=== PATIENT | male | born 1950 | race African-American/Black ===

== ENCOUNTER 2021-02-02 12:21 | Inpatient (IN) ==
[2021-02-02 15:43] LABS: Basophils % 0.3 % (0.0-0.8); Eosinophils % 0.3 % (0.00-10.9); Hemoglobin 14.9 GM/DL (14.0-18.0); Immature Granulocytes % 0.3 %; Immature Granulocytes Absolute 0.01 #; Lymphocytes # 0.8 10*3/uL (1.4-4.0); Lymphocytes % 24.4 % (21.2-54.2); Mean Corpuscular HGB Conc 31.7 GM/DL (32-36); Mean Corpuscular Volume 92.7 FL (87-102); Mean Platelet Volume 12.2 FL (9.6-12.0); Monocytes % 11.6 % (1.7-12.7); Neutrophils % 63.1 % (38.7-73.9); Platelet Count 126 T/CUMM (130-400); Red Blood Count 5.07 MC/CUMM (3.8-5.5); Red Cell Distribution Width 13.5 % (9.3-17.3); White Blood Count 3.3 T/CUMM (4-12)
[2021-02-02 15:56] LABS: INR 1.1
[2021-02-02 16:06] LABS: Alanine Aminotransferase 24 U/L (16-61); Albumin 3.7 G/DL (3.4-5.0); Alkaline Phosphatase 49 U/L (45-117); Aspartate Amino Transferase 56 U/L (0-37); Blood Urea Nitrogen 11 MG/DL (7-18); Calcium 8.3 MG/DL (8.5-10.1); Carbon Dioxide 33 MMOL/L (21-32); Estimated Glom Filtration Rate 119 ML/MIN; Ferritin 1607.2 ng/ml (26-388); Glucose 82 MG/DL (74-106); Potassium 4.7 MMOL/L (3.5-5.1); Sodium 136 MMOL/L (136-145); Total Protein 7.4 G/DL (6.4-8.2)
[2021-02-02] MEDS ORDERED: MELATONIN 3 MG TABLET PO PRN (18:19)
[2021-02-02] MEDS ORDERED: ZALEPLON 5 MG CAPSULE PO PRN (18:19)
[2021-02-02] MEDS ORDERED: ONDANSETRON 4 MG/2 ML VIAL IV PRN (18:19)
[2021-02-02] MEDS ORDERED: AZITHROMYCIN INJ 500 MG in SODIUM CHLORIDE 0.9% 250 ML IV ONE (18:19)
[2021-02-02] MEDS ORDERED: ACETAMINOPHEN 325 MG TABLET PO PRN (18:19)
[2021-02-02] MEDS: ENOXAPARIN 40 MG/0.4 ML SYRINGE SUBCUT SCH (22:25)
[2021-02-02] MEDS: ASCORBIC ACID 500 MG TABLET PO SCH (22:25)
[2021-02-02] MEDS: FAMOTIDINE 20 MG TABLET PO SCH (22:25)
[2021-02-03 04:18] LABS: Eosinophils % 0.3 % (0.00-10.9); Hematocrit 44.3 VOL% (42.0-52.0); Hemoglobin 13.6 GM/DL (14.0-18.0); Immature Granulocytes % 0.6 %; Immature Granulocytes Absolute 0.02 #; Lymphocytes # 1.1 10*3/uL (1.4-4.0); Lymphocytes % 31.4 % (21.2-54.2); Mean Corpuscular HGB Conc 30.7 GM/DL (32-36); Mean Corpuscular Volume 92.3 FL (87-102); Mean Platelet Volume 11.3 FL (9.6-12.0); Neutrophils % 55.7 % (38.7-73.9); Platelet Count 131 T/CUMM (130-400); Red Cell Distribution Width 13.2 % (9.3-17.3); White Blood Count 3.5 T/CUMM (4-12)
[2021-02-03 04:39] LABS: Band Neutrophils 1 % (0-10); Eosinophils 1 % (0-10); Lymphocytes 21 % (20-55); Segmented Neutrophils 67 % (50-85); Total Cells Counted 100
[2021-02-03 04:40] LABS: Platelet Estimate Normal
[2021-02-03 04:42] LABS: Albumin 3.1 G/DL (3.4-5.0); Bilirubin,Total 1.1 MG/DL (0.20-1.00); Calcium 8.3 MG/DL (8.5-10.1); Ferritin 1617.4 ng/ml (26-388); Osmolality,Calculated 270.8 MOS/KG (273-304); Potassium 3.8 MMOL/L (3.5-5.1); Total Protein 6.9 G/DL (6.4-8.2)
[2021-02-03] MEDS ORDERED: CHOLECALCIFEROL 1,000 UNIT TABLET PO SCH (09:00)
[2021-02-03] MEDS ORDERED: DEXAMETHASONE 4 MG/1 ML VIAL IV SCH (09:00)
[2021-02-03] MEDS ORDERED: AZITHROMYCIN 250 MG TABLET PO SCH (09:00)
[2021-02-03] MEDS ORDERED: ZINC GLUCONATE 50 MG TABLET PO SCH (09:00)
[2021-02-03] MEDS: ASCORBIC ACID 500 MG TABLET PO SCH ×2 (09:07→21:19)
[2021-02-03] MEDS: FAMOTIDINE 20 MG TABLET PO SCH ×2 (09:09→21:18)
[2021-02-03] MEDS: CETIRIZINE 10 MG TABLET PO SCH ×2 (10:08→18:22)
[2021-02-03] MEDS: IVERMECTIN 3 MG TABLET PO SCH (11:25)
[2021-02-03] MEDS ORDERED: MELATONIN 3 MG TABLET PO PRN (16:00)
[2021-02-03] MEDS: DEXAMETHASONE 4 MG/1 ML VIAL IV SCH ×2 (18:21→23:27)
[2021-02-03] MEDS: ENOXAPARIN 40 MG/0.4 ML SYRINGE SUBCUT SCH (18:22)
[2021-02-03] MEDS: cefTRIAXone 1,000 MG in SODIUM CHLORIDE 0.9% 100 ML IV SCH (18:22)
[2021-02-04 05:31] LABS: Hematocrit 43.1 VOL% (42.0-52.0); Hemoglobin 13.7 GM/DL (14.0-18.0); Immature Granulocytes % 0.8 %; Immature Granulocytes Absolute 0.02 #; Lymphocytes # 0.7 10*3/uL (1.4-4.0); Lymphocytes % 29.2 % (21.2-54.2); Mean Corpuscular HGB Conc 31.8 GM/DL (32-36); Mean Platelet Volume 11.4 FL (9.6-12.0); Monocytes % 8.5 % (1.7-12.7); Neutrophils % 61.5 % (38.7-73.9); Platelet Count 163 T/CUMM (130-400); Red Blood Count 4.79 MC/CUMM (3.8-5.5); White Blood Count 2.4 T/CUMM (4-12)
[2021-02-04 06:00] LABS: Hypochromasia 1+; Microcytosis 1+
[2021-02-04 06:01] LABS: Ovalocytes Few; Platelet Estimate Adequate
[2021-02-04 06:03] LABS: Alanine Aminotransferase 25 U/L (16-61); Albumin 2.9 G/DL (3.4-5.0); Alkaline Phosphatase 50 U/L (45-117); Aspartate Amino Transferase 35 U/L (0-37); Bilirubin,Total < 0.39 MG/DL (0.20-1.00); Blood Urea Nitrogen 13 MG/DL (7-18); Calcium 8.4 MG/DL (8.5-10.1); Carbon Dioxide 27 MMOL/L (21-32); Estimated Glom Filtration Rate 128 ML/MIN; Ferritin 1623.1 ng/ml (26-388); Glucose 132 MG/DL (74-106); Osmolality,Calculated 280.4 MOS/KG (273-304); Potassium 4.3 MMOL/L (3.5-5.1); Sodium 140 MMOL/L (136-145); Total Protein 6.8 G/DL (6.4-8.2)
[2021-02-04] MEDS: AZITHROMYCIN INJ 500 MG in SODIUM CHLORIDE 0.9% 250 ML IV SCH (09:53)
[2021-02-04] MEDS: ASCORBIC ACID 500 MG TABLET PO SCH ×2 (09:54→21:20)
[2021-02-04] MEDS: DEXAMETHASONE 4 MG/1 ML VIAL IV SCH ×2 (09:54→16:30)
[2021-02-04] MEDS: FAMOTIDINE 20 MG TABLET PO SCH ×2 (09:54→21:18)
[2021-02-04] MEDS: CHOLECALCIFEROL 5,000 UNIT TABLET PO SCH (09:54)
[2021-02-04] MEDS: ZINC GLUCONATE 50 MG TABLET PO SCH (10:40)
[2021-02-04] MEDS: CETIRIZINE 10 MG TABLET PO SCH ×2 (10:41→12:43)
[2021-02-04] MEDS: IVERMECTIN 3 MG TABLET PO SCH (15:05)
[2021-02-04] MEDS: ENOXAPARIN 40 MG/0.4 ML SYRINGE SUBCUT SCH (21:18)
[2021-02-04] MEDS: cefTRIAXone 1,000 MG in SODIUM CHLORIDE 0.9% 100 ML IV SCH (21:19)
[2021-02-05] MEDS: DEXAMETHASONE 4 MG/1 ML VIAL IV SCH ×3 (00:47→16:33)
[2021-02-05 05:15] LABS: Basophils % 0.1 % (0.0-0.8); Hematocrit 43.3 VOL% (42.0-52.0); Hemoglobin 13.4 GM/DL (14.0-18.0); Immature Granulocytes % 0.7 %; Immature Granulocytes Absolute 0.06 #; Lymphocytes # 1.1 10*3/uL (1.4-4.0); Mean Corpuscular HGB Conc 30.9 GM/DL (32-36); Mean Corpuscular Volume 91.4 FL (87-102); Mean Platelet Volume 10.7 FL (9.6-12.0); Monocytes % 7.6 % (1.7-12.7); Neutrophils % 78.6 % (38.7-73.9); Platelet Count 236 T/CUMM (130-400); Red Blood Count 4.74 MC/CUMM (3.8-5.5); White Blood Count 8.2 T/CUMM (4-12)
[2021-02-05 06:05] LABS: Albumin 3.1 G/DL (3.4-5.0); Bilirubin,Total 0.4 MG/DL (0.20-1.00); Calcium 8.9 MG/DL (8.5-10.1); Osmolality,Calculated 280.4 MOS/KG (273-304); Potassium 4.4 MMOL/L (3.5-5.1); Total Protein 7.1 G/DL (6.4-8.2)
[2021-02-05 08:56] LABS: Ferritin 1488.4 ng/ml (26-388)
[2021-02-05] MEDS: AZITHROMYCIN INJ 500 MG in SODIUM CHLORIDE 0.9% 250 ML IV SCH (11:19)
[2021-02-05] MEDS: ZINC GLUCONATE 50 MG TABLET PO SCH (11:20)
[2021-02-05] MEDS: IVERMECTIN 3 MG TABLET PO SCH (11:20)
[2021-02-05] MEDS: CHOLECALCIFEROL 5,000 UNIT TABLET PO SCH (11:21)
[2021-02-05] MEDS: ASCORBIC ACID 500 MG TABLET PO SCH ×2 (11:21→20:27)
[2021-02-05] MEDS: FAMOTIDINE 20 MG TABLET PO SCH ×2 (11:21→20:27)
[2021-02-05] MEDS: CETIRIZINE 10 MG TABLET PO SCH (11:21)
[2021-02-05] MEDS: ENOXAPARIN 40 MG/0.4 ML SYRINGE SUBCUT SCH (20:27)
[2021-02-05] MEDS: cefTRIAXone 1,000 MG in SODIUM CHLORIDE 0.9% 100 ML IV SCH (20:27)
[2021-02-06] MEDS: DEXAMETHASONE 4 MG/1 ML VIAL IV SCH ×3 (01:24→21:36)
[2021-02-06 06:53] LABS: Ferritin 1078.2 ng/ml (26-388)
[2021-02-06] MEDS: ASCORBIC ACID 500 MG TABLET PO SCH ×2 (09:29→21:42)
[2021-02-06] MEDS: ZINC GLUCONATE 50 MG TABLET PO SCH (09:29)
[2021-02-06] MEDS: CETIRIZINE 10 MG TABLET PO SCH (09:30)
[2021-02-06] MEDS: IVERMECTIN 3 MG TABLET PO SCH (09:30)
[2021-02-06] MEDS: CHOLECALCIFEROL 5,000 UNIT TABLET PO SCH (09:30)
[2021-02-06] MEDS: AZITHROMYCIN INJ 500 MG in SODIUM CHLORIDE 0.9% 250 ML IV SCH (09:39)
[2021-02-06] MEDS: FAMOTIDINE 20 MG TABLET PO SCH ×2 (09:39→21:42)
[2021-02-06] MEDS: ENOXAPARIN 40 MG/0.4 ML SYRINGE SUBCUT SCH (21:35)
[2021-02-06] MEDS: cefTRIAXone 1,000 MG in SODIUM CHLORIDE 0.9% 100 ML IV SCH (21:40)
[2021-02-07] MEDS: DEXAMETHASONE 4 MG/1 ML VIAL IV SCH ×2 (10:04→22:51)
[2021-02-07] MEDS: ASCORBIC ACID 500 MG TABLET PO SCH ×2 (10:05→22:55)
[2021-02-07] MEDS: CHOLECALCIFEROL 5,000 UNIT TABLET PO SCH (10:05)
[2021-02-07] MEDS: IVERMECTIN 3 MG TABLET PO SCH (10:05)
[2021-02-07] MEDS: ZINC GLUCONATE 50 MG TABLET PO SCH (10:05)
[2021-02-07] MEDS: FAMOTIDINE 20 MG TABLET PO SCH ×2 (10:06→22:55)
[2021-02-07] MEDS: CETIRIZINE 10 MG TABLET PO SCH (10:06)
[2021-02-07] MEDS: ENOXAPARIN 40 MG/0.4 ML SYRINGE SUBCUT SCH (22:50)
[2021-02-07] MEDS: cefTRIAXone 1,000 MG in SODIUM CHLORIDE 0.9% 100 ML IV SCH (22:55)
[2021-02-08 05:50] LABS: Basophils % 0.1 % (0.0-0.8); Hematocrit 44.8 VOL% (42.0-52.0); Hemoglobin 14.3 GM/DL (14.0-18.0); Immature Granulocytes % 1.2 %; Immature Granulocytes Absolute 0.09 #; Lymphocytes % 13.3 % (21.2-54.2); Mean Corpuscular HGB Conc 31.9 GM/DL (32-36); Mean Corpuscular Volume 91.2 FL (87-102); Mean Platelet Volume 10.4 FL (9.6-12.0); Monocytes % 7.4 % (1.7-12.7); Platelet Count 319 T/CUMM (130-400); Red Blood Count 4.91 MC/CUMM (3.8-5.5); Red Cell Distribution Width 12.9 % (9.3-17.3); White Blood Count 7.7 T/CUMM (4-12)
[2021-02-08 06:06] LABS: Calcium 8.5 MG/DL (8.5-10.1); Osmolality,Calculated 274.8 MOS/KG (273-304); Potassium 4.3 MMOL/L (3.5-5.1)
[2021-02-08] MEDS: FAMOTIDINE 20 MG TABLET PO SCH (10:03)
[2021-02-08] MEDS: CHOLECALCIFEROL 5,000 UNIT TABLET PO SCH (10:03)
[2021-02-08] MEDS: ASCORBIC ACID 500 MG TABLET PO SCH (10:03)
[2021-02-08] MEDS: ZINC GLUCONATE 50 MG TABLET PO SCH (10:03)
[2021-02-08] MEDS: CETIRIZINE 10 MG TABLET PO SCH (10:03)
[2021-02-08] MEDS: DEXAMETHASONE 4 MG/1 ML VIAL IV SCH (10:04)
[2021-02-08 14:56] VITALS: BP 167/93
== END 2021-02-08 18:00 | disposition home or self-care (01) | DRG 177 ==
LOC: EDBD → EDUNIT# → N.ED 12:21 → N.EDINP 18:19 → SUATTDRO 18:19 → N.EDINP 02-03 15:32 → N.2E 02-03 15:38
PROVIDERS: ADMIT Internal Medicine; ATTEND Internal Medicine